=== PATIENT | female | born 1960 | race Caucasian/White ===

== ENCOUNTER → 2016-07-27 | Outpatient (CLI) | payer OTHER ==
--- NOTE | 2016-07-28 07:49 | MM ---
Reason for exam: screening (asymptomatic). Last mammogram was performed 1 year and 3 months ago. History: Patient is postmenopausal. Took hormonal contraceptives for 2 months. Physical Findings: A clinical breast exam by your physician is recommended on an annual basis and results should be correlated with mammographic findings. MG Screening Mammo w CAD Bilateral CC and MLO view(s) were taken. Prior study comparison: May 09, 2015, bilateral MG screening mammo w CAD. April 27, 2013, bilateral digital screening mammo w/CAD. There are scattered fibroglandular densities. New nodular density central inner left breast anterior third position. ASSESSMENT: Incomplete: need additional imaging evaluation, BI-RAD 0 RECOMMENDATION: Special view mammogram of the left breast. If lesion persists on supplemental views, image directed ultrasound is recommended. [facility] will attempt to contact patient to return for supplemental views and ultrasound if indicated.
== END | disposition home or self-care (01) ==
LOC: RADMAMWWP 07:05
PROVIDERS: ATTEND Family Medicine
DX: Z12.31 Encounter for screening mammogram for malignant neoplasm of breast (principal)

== ENCOUNTER → 2016-07-29 | Outpatient (CLI) | payer OTHER ==
--- NOTE | 2016-07-29 11:29 | MM ---
Reason for exam: additional evaluation requested from abnormal screening. Last mammogram was performed less than 1 month ago. History: Patient is postmenopausal. Took hormonal contraceptives for 2 months. Physical Findings: Nurse did not find any significant physical abnormalities on exam. MG 3D Work Up W/Cad LT ML, spot compression CC, and spot compression MLO view(s) were taken of the left breast. Prior study comparison: July 27, 2016, bilateral MG screening mammo w CAD. May 09, 2015, bilateral MG screening mammo w CAD. Finding: There is a 5 mm equal density, oval mass in the central position of the left breast. These results were verbally communicated with the patient and result sheet given to the patient on 07/29/16. ASSESSMENT: Incomplete: need additional imaging evaluation, BI-RAD 0 RECOMMENDATION: Ultrasound of the left breast.
--- NOTE | 2016-07-29 11:36 | USB ---
Reason for exam: additional evaluation requested from abnormal screening. History: Patient is postmenopausal. Took hormonal contraceptives for 2 months. US Breast Workup Limited LT Left breast ultrasound indicates a 0.2 x 0.5 x 0.2cm oval lesion too small to characterize in the subareolar position for which a 6 month follow up is recommended, a 0.5 x 0.6 x 0.4cm oval cyst at 7 o'clock, there is either minimal internal complexity or internal debris, this corresponds well to the mammographic finding for which a 6 month follow up is recommended, and a duct at 8 o'clock. These results were verbally communicated with the patient and result sheet given to the patient on 07/29/16. ASSESSMENT: Probably benign, BI-RAD 3 RECOMMENDATION: Follow-up diagnostic mammogram and ultrasound of the left breast in 6 months.
== END | disposition home or self-care (01) ==
LOC: RADMAMWWP 06:55
PROVIDERS: ATTEND Family Medicine
DX: R92.8 Other abnormal and inconclusive findings on diagnostic imaging of breast (principal)
CPT/HCPCS: 76642; G0206; G0279

== ENCOUNTER → 2017-04-28 | Outpatient (CLI) | payer OTHER ==
--- NOTE | 2017-04-29 11:42 | USB ---
Reason for exam: follow-up at short interval from prior study. History: Patient is postmenopausal. Took hormonal contraceptives for 2 months. US Breast LT Left breast ultrasound includes all four quadrants, the retroareolar region and axilla. Finding demonstrates a 0.4 x 0.4 x 0.2cm oval, cystic, anechoic lesion at 3 o'clock, previously seen complicated cyst at 7 o'clock has resolved as has the smaller cystic mass posterior to the nipple. These results were verbally communicated with the patient and result sheet given to the patient on 04/28/17. ASSESSMENT: Benign, BI-RAD 2 RECOMMENDATION: Return to routine screening mammogram schedule for both breasts. Back on schedule for July 2017.
--- NOTE | 2017-04-29 11:43 | MM ---
Reason for exam: additional evaluation requested from prior study. Last mammogram was performed 9 months ago. History: Patient is postmenopausal. Took hormonal contraceptives for 2 months. Physical Findings: Nurse did not find any significant physical abnormalities on exam. MG Diagnostic Mammo LT w CAD CC and MLO view(s) were taken of the left breast. Prior study comparison: July 29, 2016, left breast MG 3d work up w/cad LT. July 27, 2016, bilateral MG screening mammo w CAD. May 09, 2015, bilateral MG screening mammo w CAD. April 27, 2013, bilateral digital screening mammo w/CAD. There are scattered fibroglandular densities. The previously seen mass at the 7 o'clock position in the left breast has resolved mammographically and sonographically. No suspicious abnormality. These results were verbally communicated with the patient and result sheet given to the patient on 04/28/17. ASSESSMENT: Benign, BI-RAD 2 RECOMMENDATION: Return to routine screening mammogram schedule for both breasts. Back on schedule for July 2017.
== END | disposition home or self-care (01) ==
LOC: RADMAMWWP 14:20
PROVIDERS: ATTEND Family Medicine
DX: R92.8 Other abnormal and inconclusive findings on diagnostic imaging of breast (principal)
CPT/HCPCS: 77065